=== PATIENT | male | born 1975 | race Caucasian/White ===

== ENCOUNTER 2023-03-17 20:59 | Emergency (ER) | payer SELFPAY ==
[~2023-03-17] VITALS: Ht 185.4 cm; Wt 88.5 kg
[2023-03-17 21:36] VITALS: BP 126/71; TEMP 98.4; O2SAT 97
[2023-03-17] MEDS ORDERED: AMOX500C2 PO (22:07)
== END 2023-03-17 22:17 | disposition home or self-care (01) ==
LOC: ER 21:08
DX: H65.91 Unspecified nonsuppurative otitis media, right ear (principal); Z79.899 Other long term (current) drug therapy; Z60.2 Problems related to living alone